=== PATIENT | male | born 1970 ===

== ENCOUNTER 2020-05-14 08:26 | Emergency (ER) | payer SELFPAY ==
[~2020-05-14] VITALS: Ht 185.4 cm; Wt 76.5 kg
[2020-05-14 08:29] VITALS: BP 127/80
== END 2020-05-14 09:45 | disposition home or self-care (01) ==
LOC: ED 09:35
DX: E10.9 Type 1 diabetes mellitus without complications (principal); R53.81 Other malaise; R11.0 Nausea; F17.200 Nicotine dependence, unspecified, uncomplicated; Z76.0 Encounter for issue of repeat prescription
CPT/HCPCS: 99281